=== PATIENT | female | born 1945 | race Caucasian/White ===

== ENCOUNTER → 2018-12-09 | Outpatient (CLI) | payer MEDICARE ==
--- NOTE | 2018-12-09 08:20 | RAD ---
Examination: EXT NON VASC LTD LEFT History: Left axillary palpable abnormality Comparison/Correlation: None Findings: Ultrasound imaging of the left axilla was performed. There is no loculated collection, mass, enlarged lymph nodes, or cystic structure. Soft tissues are unremarkable. Impression: Unremarkable left axillary ultrasound exam. Electronically signed by: Kentrell Gonzalez MD (12/09/2018 8:17 AM) [facility]
== END | disposition home or self-care (01) ==
LOC: US 14:17
PROVIDERS: ATTEND Family Medicine
DX: R22.32 Localized swelling, mass and lump, left upper limb (principal)
CPT/HCPCS: 76882

== ENCOUNTER → 2019-02-13 | Outpatient (CLI) | payer MEDICARE, OTHER ==
[~2019-02-13] MED LIST: ACET500T68 PO; APIX5TAB PO; DICL100G18 TP; FLUT100D IH; FOLI0.8C PO; GABA300C18 PO; HYDR200T5 PO; METH2.5T PO; METO25TA4 PO; MUPI22OI2 TP
--- NOTE | 2019-02-13 18:42 | PAIN ---
DATE OF SERVICE: 02/13/2019 INITIAL CONSULTATION FOR PAIN CLINIC CHIEF COMPLAINT: Low back pain. HISTORY OF PRESENT ILLNESS: This is a 73-year-old female who presents with history of pain in the low back for about 6 months now, increasing in pain, not a result of any specific injury or action that she is aware of, but the pain is getting worse with walking, standing, change in positions, even sitting for more than about 20 minutes can exacerbate the pain, especially driving in the car with pain in the right leg as well, but not radiating posteriorly just into the hip. The patient reports she has been seen recently at an outside facility and had bilateral medial branch facet blocks done twice with about 80% improvement each time, was considering radiofrequency ablation, but was not happy with the treatment she had personally at the clinic with the staff. She checked with her primary care physician and was referred to our office today. The patient reports the pain is constant, shooting with numbness across the low back and the right gluteus with a cramping sensation as well in the low back itself, again worse with standing, walking, changing positions, but does awaken her from sleep occasionally. The patient reports it does not affect her bowel or bladder control, but does affect her ability to walk. She is using a cane, which she has with her today and holds within her left hand. The patient has had epidural injections in the past, also physical therapy in 07/2018, chiropractic treatment ongoing, and also taking gabapentin and Tylenol, both of which do decrease the pain, but only minimally. The patient did have MRI scan of the lumbar spine showing diffuse bulging annulus at L2-L3 with a right focal paracentral disk protrusion. L3-L4 shows disk space narrowing and degenerative endplate changes. The L4-L5 shows ligamentous hypertrophy in the facet joints with diffuse bulging annulus. L5-S1 shows facet and ligamentous hypertrophy with bulging annulus as well. The patient reports no loss of motor function, but significant fatigability with the right leg with walking and standing. The patient rates her disability rating from 0-10, 10 being the worst, is a 7 with family home responsibilities, recreation and occupation, 6 with social activity, 5 with self-care and 4 with life support activities. The patient reports no loss of motor function, but again significant fatigability of the right side with walking. PAST MEDICAL HISTORY: Significant for irregular heart rhythm, diverticulitis, incontinence, anticoagulation, arthritis, Britney's thyroiditis. PAST SURGICAL HISTORY: Previous surgeries include cataract extraction, heart ablation, hernia repairs, hysterectomy, nose surgery and cholecystectomy. CURRENT MEDICATIONS: Include Eliquis, methotrexate, gabapentin, metoprolol, hydroxychloroquine, mupirocin, folic acid, Tylenol, Flovent, Voltaren. ALLERGIES: THE PATIENT IS ALLERGIC TO MORPHINE, TRAMADOL, BIAXIN, TORADOL. FAMILY HISTORY: Significant for heart disease, cancer and arthritis. SOCIAL HISTORY: The patient does not drink alcohol, does not smoke. Denies any illegal, illicit or recreational drugs. She is , lives with her spouse, lives locally in [place], [place]. Reports she is currently retired. REVIEW OF SYSTEMS: The patient's review of systems is positive for those items mentioned in history of present illness. All systems reviewed and otherwise negative. It is complete, full and well documented on the patient's chart. PHYSICAL EXAMINATION: VITAL SIGNS: The patient's blood pressure is 132/74, pulse 61, respirations 18, temperature 97.9 degrees Fahrenheit, 5 feet 4 inches, weighs 273 pounds. GENERAL: The patient is awake, alert, oriented, appropriate, very pleasant demeanor. HEENT: Shows normocephalic, atraumatic. Extraocular movements are intact and symmetrical. Oral cavity shows mucous membranes moist and pink. Dentition is intact. NECK: Shows anterior throat supple without palpable lymphadenopathy noted. Swallow reflex symmetrical. CHEST: Shows normal on inspection. Breath sounds are clear bilaterally. HEART: Shows S1, S2 clear. No murmurs auscultated. ABDOMEN: Soft, nontender, nondistended. No palpable organomegaly is noted. No rebound or guarding demonstrated. BACK: Shows spine grossly in the midline. Normal-appearing thoracic kyphosis. Slight exaggeration of flattening of lumbar lordotic curvature. Lumbar paraspinous muscle shows symmetrical on inspection. On palpation she has some moderate tenderness diffusely bilaterally, but only diffusely without significant radiation. No tenderness over the spinous processes, sacrum or sacroiliac regions. The patient shows some tenderness with rotation of motion; however, more to the right than the left and significant tenderness with extension of the lumbar spine and axial loading of the lumbar spine. No tenderness over the spinous processes, sacrum or sacroiliac regions. EXTREMITIES: Lower extremities show deep tendon reflexes at 1+ in the patellar and tendo-calcaneus tendons are equal. Motor exam is strong with 5/5 dorsiflexion, extension, quadriceps and hamstring flexion symmetrical. Peripheral pulses are 1+ in posterior tibia. No peripheral edema is noted bilaterally. Straight leg raise noted to be negative for reproduction of radicular symptoms. Gaenslen's and Killian's maneuvers are negative bilaterally as well. The patient is able to stand, has some difficulty rising from a seated position, but once she is up, she is ambulating under her own power again using a cane in her left hand with some significant favoring on the right lower extremity with a slight limp with ambulation. The patient's skin shows warm and dry, good turgor. No edema. No sores, rashes or bruising throughout. IMPRESSION: 1. This is a 73-year-old female with a long history approximately 1 year of arthritis, 6 months of low back pain with previous facet joint injections and medial branch blocks with good results at an outside facility. 2. Arthritis. 3. Anticoagulation therapy. PLAN: Options were discussed with the patient including conservative medical managements, physical therapies and interventional techniques. She would like to pursue interventional techniques as she has done well with previous medial branch blocks and would like to move forward. We discussed radiofrequency ablation and she is very interested in this. She has done well with the preliminary facet injections. We will make the arrangements for this and also check with her ranch rider to hold the Eliquis for 3 days prior to any spinal procedures. The patient understands and agrees. Once Eliquis is deemed safe and appropriate to hold for the procedures, we will proceed with radiofrequency ablation, bilateral L4-L5 and L5-S1 levels at that time. MARY ASENCIO MD DR: RANDOLPH/gadiel JOB#: [id number] / [id number] ASHLEE Caldwell MD
== END | disposition home or self-care (01) ==
LOC: PNCL 08:11
PROVIDERS: ATTEND Anesthesiology
DX: M54.5 Low back pain (principal); M19.90 Unspecified osteoarthritis, unspecified site; E06.3 Autoimmune thyroiditis; Z79.01 Long term (current) use of anticoagulants; Z88.5 Allergy status to narcotic agent; Z88.8 Allergy status to other drugs, medicaments and biological substances; Z90.49 Acquired absence of other specified parts of digestive tract; Z90.710 Acquired absence of both cervix and uterus
CPT/HCPCS: G0463

== ENCOUNTER → 2019-03-17 | Outpatient (CLI) | payer MEDICARE, OTHER ==
[~2019-03-17] MED LIST changes: +BUPIVACAINE MPF 0.25% 10 ML VIAL. ONE; +LIDOCAINE 2% PF 5 ML VIAL. ONE; +methylPREDNISolone ACETATE 40 MG/ML VIAL. ONE; +methylPREDNISolone ACETATE 80 MG/ML VIAL. ONE
--- NOTE | 2019-03-17 22:42 | PAIN ---
DATE OF SERVICE: 03/17/2019 DIAGNOSES: Lumbar degenerative disk disease with lumbar and lumbosacral spondylosis. HISTORY OF PRESENT ILLNESS: The patient is a 73-year-old female who returns for followup status post previous facet joint injections and medial branch blocks with good results. We had requested a preauthorization for radiofrequency ablation and she has obtained this. She has also been off her Eliquis now for 3 days with clearance from her material control manager, Dr. Russo. The patient returns today reporting still significant pain across the low back bilaterally, worse with standing and changing positions, walking, sitting for prolonged periods, better with sitting or lying down, does not awaken her from sleep at night, but sitting for more than an hour or so will exacerbate the pain. The patient reports no new motor or sensory deficits, no new bowel or bladder incontinence or other complaints. The patient rates her pain as a 10 on a scale of 10 at its worst, 6 on average, 3 at its least and is a 4 today. The patient reports no new changes or other deficits. PHYSICAL EXAMINATION: VITAL SIGNS: The patient's blood pressure is 126/80, pulse 62, respirations 18, temperature 97.8 degrees Fahrenheit, height is 5 feet 4 inches, weight is 262 pounds. GENERAL: The patient is awake, alert, oriented, appropriate, very pleasant demeanor. HEENT: Head shows normocephalic, atraumatic. Extraocular movements are intact and symmetrical. Oral cavity shows mucous shows mucous membranes moist and pink. Dentition is intact. NECK: Shows anterior throat supple without palpable lymphadenopathy noted. Swallow reflex symmetrical. CHEST: Shows normal on inspection. Breath sounds are clear to auscultation bilaterally. HEART: Shows S1, S2 clear. No murmurs auscultated. ABDOMEN: Soft, nondistended. No palpable organomegaly is noted. No rebound or guarding demonstrated. BACK: Shows spine grossly in the midline. Slight exaggeration of thoracic kyphosis, some minor flattening of lumbar lordotic curvature. Lumbar paraspinous muscle shows symmetrical on inspection, on palpation shows some moderate tenderness diffusely in the middle and lower distribution of paraspinous muscles bilaterally, right more severe than the left, but without significant radiation or asymmetry. The patient has good rotational motion but with significant pain with extension, especially on the right side low back, but present bilaterally with axial loading and better with forward flexion at 45 degrees, right and left lateral rotation shows some moderate tenderness on the left and more significant tenderness with right lateral rotation past 10 degrees. EXTREMITIES: Lower extremities show deep tendon reflexes 1+ in the patellar and tendo calcaneus tendons. Motor exam is strong with 5/5 dorsiflexion, extension, quadriceps and hamstring flexion and symmetrical. Peripheral pulses are 1+ posterior tibia. No peripheral edema is noted bilaterally. Options were discussed with the patient. The patient's old chart was reviewed as her current medication regimen updated. Current review of systems updated today as well. We will proceed with bilateral medial branch radiofrequency ablation at the L4-L5 and L5-S1 levels with fluoroscopic guidance. Risks were again discussed including, but not limited to bleeding, infection, possibility of epidural hematoma, subsequent neurological compromise, dural puncture, headaches, spinal cord and/or nerve damage, side effects of steroid medication, exposure to fluoroscopy, potential thermal ablation and thermal damage to surrounding tissues including motor nerves in the low back and poor results regarding pain control. The patient understands and wished to proceed. The patient will return to clinic in approximately 3 weeks for followup. She was counseled as to return appointment, activity level and side effects to be aware of. DIAGNOSIS: Lumbar and lumbosacral spondylosis. PROCEDURE: Bilateral L4-L5 and L5-S1 medial branch facet radiofrequency ablation using C-arm fluoroscopic guidance under sterile prep and drape using local anesthetic. MEDICATION INJECTED: A total of 6 mL of 2% lidocaine after motor testing and prior to radiofrequency ablation. Also, 6 mL of 0.25% bupivacaine and total of 120 mg Depo-Medrol after radiofrequency ablation. Please see radiofrequency flow sheet for levels, impedances. Motor testing, radiofrequency temperature and time, etc. CONDITION AT DISCHARGE: Stable. The patient tolerated the procedure well, had no complications, left on her own ambulatory power. MARY ASENCIO MD DR: RANDOLPH/gadiel JOB#: [id number] / [id number]
== END ==
LOC: PNCL 13:20
PROVIDERS: ATTEND Anesthesiology
DX: M51.36 Other intervertebral disc degeneration, lumbar region (principal); M47.817 Spondylosis without myelopathy or radiculopathy, lumbosacral region
CPT/HCPCS: 64635; 64636; J1030; J1040; J2001; J3490

== ENCOUNTER → 2019-04-16 | Outpatient (CLI) | payer MEDICARE, OTHER ==
[~2019-04-16] MED LIST changes: -BUPIVACAINE MPF 0.25% 10 ML VIAL. ONE; -LIDOCAINE 2% PF 5 ML VIAL. ONE; -methylPREDNISolone ACETATE 40 MG/ML VIAL. ONE; -methylPREDNISolone ACETATE 80 MG/ML VIAL. ONE
--- NOTE | 2019-04-16 22:47 | PAIN ---
DATE OF SERVICE: 04/16/2019 PROGRESS NOTE FOR PAIN CLINIC DIAGNOSES: 1. Lumbar degenerative disk disease and lumbar spondylosis. 2. Cervical radiculopathy with cervical degenerative disk disease. 3. Myofascial pain. HISTORY OF PRESENT ILLNESS: The patient is a 73-year-old female who returns for followup status post radiofrequency ablation at bilateral L4-L5 and L5-S1 facet medial branches. The patient reports about 50% improvement overall. The sharp pain is now gone but she still has some dull aching pain. Her main complaint today, however, is pain in the base of the neck and shoulder, right upper extremity, right posterior shoulder, mid back, upper back, and bilateral gluteus, more on the left than the right, consistent with some areas of very firm tight musculature. The patient reports she has knots that are formed in these areas and they are quite exacerbated at this time. The patient reports that her pain is 6 on a scale of 10 at its worst over the past week, 5 on average, 4 at its least, and is a 5 today. The patient reports that it is aching, sharp, and becoming more constant. Her right thigh is doing better and her low back is overall better by about 50%. The patient reports that she has increased her activities doing greater household activities, greater distance walking, and doing work activities as well. The patient reports no new motor or sensory deficits and no new changes. PHYSICAL EXAMINATION: VITAL SIGNS: The patient's blood pressure 119/70, pulse 71, respirations 16, temperature 97.9 degrees Fahrenheit, and weight is 275 pounds. GENERAL: The patient is awake, alert, oriented, and appropriate. Very pleasant demeanor. HEENT: Shows normocephalic and atraumatic. Extraocular movements are intact and symmetrical. Oral cavity: Mucous membranes are moist and pink. Dentition is intact. NECK: Shows anterior throat supple without palpable lymphadenopathy noted. Swallow reflex symmetrical. CHEST: Shows normal on inspection. Breath sounds are clear bilaterally. HEART: Shows S1, S2 clear. No murmurs auscultated. ABDOMEN: Soft, nontender, and nondistended. SPINE: Back shows spine grossly in the midline. Cervical paraspinous muscle shows symmetrical on inspection. On palpation, she has some very firm rope-like musculature in the inferior aspect of the cervical paraspinous musculature on the right and into the trapezius with very firm rope-like musculature consistent with trigger point areas of muscle on the right side. This is true into the superior suprascapular distribution of the trapezius as well as the medial inferior aspect of the trapezius and thoracic paraspinous musculature. Lumbar paraspinous muscle shows symmetrical on inspection. With palpation, she has some very firm rope-like musculature in the inferior aspect of the paraspinous muscles on the left greater than the right, but present bilaterally with very firm rope-like musculature in the gluteus, worse on the right than the left, very firm rope-like musculature and very tender with palpation. EXTREMITIES: The patient's lower extremities show deep tendon reflexes 1+ in the patellar and tendo calcaneus tendons. Motor exam is strong with 5/5 dorsiflexion, extension, quadriceps, and hamstring flexion. Peripheral pulses are 1+ posterior tibia. No peripheral edema is noted. PLAN: Options were discussed with the patient. The patient's old chart was reviewed as her current medication regimen updated. Current review of systems updated today as well. We will have the patient hold Eliquis once again for 3 days and return for trigger point injections of the aforementioned musculature. The patient will maintain stretching and strengthening exercises. We also talked about heat and stretching with heat application and massage techniques. The patient will maintain these and again return next week for trigger point injections once Eliquis has been held. MARY ASENCIO MD DR: RANDOLPH/gadiel JOB#: [id number] / [id number]
== END | disposition home or self-care (01) ==
LOC: PNCL 14:15
PROVIDERS: ATTEND Anesthesiology
DX: M51.36 Other intervertebral disc degeneration, lumbar region (principal); M47.896 Other spondylosis, lumbar region; M54.12 Radiculopathy, cervical region; M50.30 Other cervical disc degeneration, unspecified cervical region; M79.18 Myalgia, other site
CPT/HCPCS: G0463

== ENCOUNTER → 2019-04-25 | Outpatient (CLI) | payer MEDICARE, OTHER ==
[~2019-04-25] MED LIST changes: +BUPIVACAINE MPF 0.25% 10 ML VIAL. ONE; +methylPREDNISolone ACETATE 40 MG/ML VIAL. ONE
--- NOTE | 2019-04-25 13:43 | PAIN ---
DATE OF SERVICE: 04/25/2019 PROGRESS NOTE FOR PAIN CLINIC DIAGNOSES: 1. Lumbar degenerative disk disease and lumbosacral spondylosis. 2. Cervical radiculopathy with cervical degenerative disk disease. 3. Myofascial pain. HISTORY OF PRESENT ILLNESS: The patient is a 73-year-old female who returns for followup status post radiofrequency ablation, bilateral L4-L5 and L5-S1 with about a 50% improvement overall, still doing well. 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 The patient reports it does not awaken her from sleep. Her main complaint is right upper back and neck pain, and we discussed with her on her last visit. She has been off her Eliquis now for 3 days. Describes the pain in the base of the neck and shoulder on the right side, upper back, mid back and neck as a tingling and burning pains, on and off in intensity but tight, burning and stinging. The patient reports it is a 6 on a scale of 10 at its worst, 6 on an average and a 5 at its least over the past week and is a 6 today. The patient reports no new motor or sensory deficits, no new bowel or bladder incontinence or other complaints. PHYSICAL EXAMINATION: VITAL SIGNS: The patient's blood pressure is 120/73, pulse 65, respirations 18, temperature 98.5 degrees Fahrenheit and weight is 277 pounds. GENERAL: The patient is awake, alert, oriented, appropriate, very pleasant demeanor. HEENT: Head shows normocephalic, atraumatic. Extraocular movements are intact and symmetrical. Oral cavity: Mucous membranes moist and pink. Dentition is intact. NECK: Shows anterior throat supple without palpable lymphadenopathy noted. Swallow reflex symmetrical. CHEST: Shows normal on inspection. Breath sounds clear to auscultation bilaterally. HEART: Shows S1, S2 clear. No murmurs auscultated. ABDOMEN: Soft, nontender, nondistended. No palpable organomegaly is noted. No rebound or guarding demonstrated. BACK: Shows spine grossly in the midline. Normal-appearing thoracic kyphosis and some slight flattening of lumbar lordotic curvature. Cervical paraspinous muscle shows symmetrical on inspection, on palpation shows some very firm rope-like musculature in the inferior aspect of the right side only. Cervical paraspinous musculature in the inferior aspect, also in the superior medial trapezius, very firm rope-like musculature in the trapezius is very tender to palpation without radiation. This is true into the suprascapular region as well as into the thoracic paraspinous musculature on the right side only. Left side is nontender and supple. The patient's neck shows full rotational motion of cervical spine, both laterally as well as extension and flexion without significant difficulty. EXTREMITIES: Upper extremities show deep tendon reflexes 2+ in the biceps, triceps tendons. Motor exam is strong with associate professor of management strength rated at 5/5 as is bicep and tricep flexion. The patient has good shoulder rotation on the right and the left, both actively and passively without restriction as well. Options were discussed with the patient. The patient's old chart was reviewed as her current medication regimen updated. Current review of systems updated today as well. We will proceed with trigger point injections of the aforementioned and identified musculature. Risks were discussed including but not limited to bleeding, infection, possibility of intravascular injection sequelae, spread of local anesthetic and numbness, pneumothorax, side effects of steroid medication and poor results regarding pain control. The patient understands and wished to proceed. The patient will return to clinic in approximately 2 weeks for followup. She was counseled as to return appointment, activity level and side effects to be aware of. DIAGNOSIS: Myofascial pain. PROCEDURE: Trigger point injections, right-sided cervical paraspinous musculature, right-sided trapezius musculature and right-sided thoracic paraspinous muscular and suprascapular musculature which was under sterile prep and drape using local anesthetic. MEDICATION INJECTED: A total of 8 mL of 0.25% bupivacaine after negative aspiration at each injection site as well as 40 mg total of Depo-Medrol. CONDITION AT DISCHARGE: Stable. The patient tolerated the procedure well, had no complications. MARY ASENCIO MD DR: RANDOLPH/gadiel JOB#: [id number] / [id number]
== END ==
LOC: PNCL 10:30
PROVIDERS: ATTEND Anesthesiology
DX: M79.18 Myalgia, other site (principal); M47.817 Spondylosis without myelopathy or radiculopathy, lumbosacral region; M50.10 Cervical disc disorder with radiculopathy, unspecified cervical region
CPT/HCPCS: 20553; J1030; J3490

== ENCOUNTER → 2019-05-22 | Outpatient (CLI) | payer MEDICARE, OTHER ==
--- NOTE | 2019-05-22 15:35 | PAIN ---
DATE OF SERVICE: 05/22/2019 PROGRESS NOTE FOR PAIN CLINIC DIAGNOSES: 1. Myofascial pain. 2. Lumbar degenerative disk disease with spondylosis. 3. Cervical degenerative disk disease with cervical radiculopathy. HISTORY OF PRESENT ILLNESS: The patient is a 73-year-old female who returns for followup status post trigger point injections on 04/25/2019. The patient did very well with this with about 90% improvement in her right arm. Now, the left arm is very painful in the shoulder girdle, base of the neck, right upper extremity, posterior and anterior aspect, especially on the biceps and in the upper shoulder as well. The patient reports it is a constant, aching, dull, sharp, shooting, very spastic and tender. The patient reports especially when she is sleeping, it is awakening her from sleep. When she is lying on her left side, the patient reports it is a 7 on a scale of 10 at its worst over the past week, 6 on average, 5 at its least and is a 6 today. The patient reports no new motor or sensory deficits and the right side doing much better, increasing her activity with greater ease and comfort, using right upper extremity with more ease as well. PHYSICAL EXAMINATION: VITAL SIGNS: The patient's blood pressure 111/61, pulse 70, respirations 18, temperature 97.3 degrees Fahrenheit, height is 5 feet 4 inches and weight is 278 pounds. GENERAL: The patient is awake, alert, oriented, appropriate, very pleasant demeanor. HEENT: Shows normocephalic, atraumatic. Extraocular movements are intact and symmetrical. Oral cavity: Mucous membranes moist and pink. Dentition is intact. NECK: Shows anterior throat supple without palpable lymphadenopathy noted. Swallow reflex symmetrical. CHEST: Shows normal on inspection. Breath sounds clear bilaterally. HEART: Shows S1, S2 clear. ABDOMEN: Soft, nontender, nondistended. BACK: Shows spine grossly in the midline. Cervical paraspinous muscle shows symmetrical on inspection, with palpation shows some moderate tenderness in the inferior aspect of cervical paraspinous musculature, more on the left than the right and with some very firm rope-like musculature in the inferior cervical paraspinous musculature along the trapezius on the left side, supraspinatus region, also the rhomboid distribution and into the superior aspect of the thoracic paraspinous muscles of very firm rope-like musculature, very tender with palpation. This is true into the lateral and anterior deltoid as well with very firm rope-like musculature and trigger point areas as well as into the anterior bicep on the medial aspect, very firm rope-like musculature consistent with trigger point areas of muscle, very firm, very tender with palpation without specific radiation. EXTREMITIES: The patient's upper extremity deep tendon reflexes show 2+ in the biceps and triceps tendons. 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 Peripheral pulses are 2+ radial. No peripheral edema is noted. Options were discussed with the patient. The patient's old chart was reviewed as her current medication regimen updated. Current review of systems updated today as well. We will proceed with trigger point injections of the identified musculature. Risks were discussed including but not limited to bleeding, infection, possibility of intravascular injection sequelae, spread of local anesthetic and numbness, pneumothorax, side effects of steroid medication and poor results regarding pain control. The patient understands and wished to proceed. The patient will return to clinic in approximately 2 weeks for followup. She was counseled as to return appointment, activity level and side effects to be aware of. DIAGNOSIS: Myofascial pain. PROCEDURES: Trigger point injections, left-sided cervical paraspinous musculature, left trapezius, left rhomboid musculature, left supraspinatus, left deltoid and left thoracic paraspinous musculature as well as left biceps musculature under sterile prep and drape using local anesthetic. MEDICATION INJECTED: A total of 40 mg of Depo-Medrol and a total of 9 mL of 0.25% bupivacaine after negative aspiration at each injection site. CONDITION AT DISCHARGE: Stable. The patient tolerated the procedure well, had no complications. MARY ASENCIO MD DR: RANDOLPH/gadiel JOB#: [id number] / [id number]
== END ==
LOC: PNCL 10:23
PROVIDERS: ATTEND Anesthesiology
DX: M79.18 Myalgia, other site (principal); M50.10 Cervical disc disorder with radiculopathy, unspecified cervical region; M47.816 Spondylosis without myelopathy or radiculopathy, lumbar region
CPT/HCPCS: 20553; J1030; J3490

== ENCOUNTER → 2019-05-26 | Outpatient (CLI) | payer MEDICARE, OTHER ==
[~2019-05-26] MED LIST changes: -BUPIVACAINE MPF 0.25% 10 ML VIAL. ONE; -methylPREDNISolone ACETATE 40 MG/ML VIAL. ONE
--- NOTE | 2019-05-26 10:15 | KCIC ---
EXAM: Cervical spine MRI without contrast. HISTORY: Left upper extremity radiculopathy. TECHNIQUE: Multiplanar, multisequence magnetic resonance imaging of the cervical spine was performed without contrast. COMPARISON: None FINDINGS: There is mild cervical kyphosis. There is no significant listhesis. The vertebral bodies are normal in height. There is no fracture. There is no suspicious osseous lesion. The skull base and posterior fossa are unremarkable. No suspicious spinal cord lesion is seen. There is degenerative endplate remodeling and osteophytosis at the majority of the cervical levels. At C2-C3, there is no stenosis. At C3-C4, there is a disc bulge and endplate remodeling. There is bilateral uncovertebral arthropathy. There is slight flattening of the ventral aspect of the spinal cord without significant central canal stenosis. At C4-C5, there is a disc bulge and endplate osteophytosis. There is bilateral uncovertebral arthropathy. There is mild right foraminal stenosis. There is flattening of the ventral aspect of the spinal cord without significant central canal stenosis. At C5-C6, there is a disc bulge and endplate osteophytosis. There is mild right facet arthropathy. There is uncovertebral arthropathy. There is mild left foraminal stenosis. There is abutment of the ventral aspect of the spinal cord without significant central canal stenosis. At C6-C7, there is a disc bulge and endplate osteophytosis. There is uncovertebral arthropathy. There is mild right foraminal stenosis. There is effacement of the anterior thecal sac without significant central canal stenosis. IMPRESSION: Multilevel degenerative change involving the cervical spine, described in detail above. This results in mild right foraminal stenosis at C4-C5 and C6-C7 and mild left foraminal stenosis at C5-C6. There is slight flattening of the ventral aspect of the spinal cord at several levels without significant central canal stenosis or spinal cord signal abnormality. Electronically signed by: Rianna Stratton MD (05/26/2019 10:12 AM) [facility]
== END ==
LOC: KCIC MRI 09:17
PROVIDERS: ATTEND Anesthesiology
DX: M54.16 Radiculopathy, lumbar region (principal)
CPT/HCPCS: 72141

== ENCOUNTER → 2019-07-28 | Outpatient (CLI) | payer MEDICARE, OTHER ==
[~2019-07-28] MED LIST changes: +BUPIVACAINE MPF 0.25% 10 ML VIAL. ONE; -DICL100G18 TP; +DICL100G54 TP; +methylPREDNISolone ACETATE 40 MG/ML VIAL. ONE
--- NOTE | 2019-07-28 10:13 | PAIN ---
DATE OF SERVICE: 07/28/2019 PROGRESS NOTE FOR PAIN CLINIC DIAGNOSES: 1. Lumbar degenerative disk disease with lumbar spondylosis. 2. Cervical radiculopathy with cervical degenerative disk disease. 3. Myofascial pain. HISTORY OF PRESENT ILLNESS: The patient is a 73-year-old female who returns for followup status post trigger point injections of the upper neck and shoulders, mostly on the left side. The patient reports she did very well with about 50% improved. The pain is returning now in the base of neck and shoulders. We had scheduled an MRI scan, which she had done. We discussed the results with her day-to-day on the phone with some mild foraminal stenosis both right and left at C4-C5 and C6-C7. The patient still reports some radicular-type pain in the upper extremities bilaterally as well as the shoulders ____ some knot on the left side of base of the neck, upper shoulder, upper mid back and left side. The patient reports no new motor or sensory deficits. Reports the pain does not awaken her from sleep at night, but the pain is becoming more noticeable in both the upper extremities, radiating to the anterior bicep region as well as the forearm and to the left hand and fingers more than the right. The patient reports it is aching, sometimes sharp, becoming more constant, stiff difficulty with getting position for sleep, but when she is asleep, she generally does not awaken her from sleep. The patient reports it is a 6 on a scale of 10 at its worse over the past week, 6 on average, 5 at its least and is a 6 today. The patient reports no new motor or sensory deficits, no new bowel or bladder incontinence or other complaints. PHYSICAL EXAMINATION: VITAL SIGNS: The patient's blood pressure 112/74, pulse 68, respirations 18, temperature is 97.8 degrees Fahrenheit, and weight is 287 pounds. GENERAL: The patient is awake, alert, oriented, appropriate, very pleasant demeanor. HEENT: Shows normocephalic, atraumatic. Extraocular movements are intact and symmetrical. Oral cavity: Mucous membranes moist and pink. Dentition is intact. NECK: Shows anterior throat supple without palpable lymphadenopathy noted. Swallow reflex symmetrical. CHEST: Shows normal on inspection. Breath sounds are clear bilaterally. HEART: Shows S1, S2 clear. No murmurs auscultated. ABDOMEN: Soft, nontender, nondistended. No palpable organomegaly is noted. No rebound or guarding demonstrated. BACK: Shows spine grossly in the midline. Normal appearing thoracic kyphosis and some slight flattening of lumbar lordotic curvature. Cervical paraspinous muscle shows symmetrical as well. With palpation shows some very firm rope-like musculature in the inferior cervical paraspinous musculature as well as the left trapezius in the left thoracic paraspinous musculature, very firm, very tender to palpation on multiple musculature consistent with trigger point areas in these regions only on the left side. The patient reports pain with palpation in the anterior deltoid bilaterally as well. EXTREMITIES: Upper extremities show deep tendon reflexes 2+ in the biceps and triceps tendons. 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 Peripheral pulses are 2+ radial. No peripheral edema bilaterally. Options were discussed with the patient. The patient's old chart was reviewed as her current medication regimen updated. Current review of systems updated today as well. We will proceed with trigger point injections of the identified musculature. Risks were discussed including but not limited to bleeding, infection, possibility of extravasation of local anesthetic and numbness as well as poor results regarding pain control. The patient understands and wished to proceed. The patient will return to clinic in approximately 4 days. We discussed holding her Eliquis once again which has been cleared with her liquid compounder in the past for a cervical epidural steroid injection. Regarding her cervical radicular symptoms and MRI findings. The patient would like to proceed with this. We will make these arrangements to have her return for cervical epidural steroid injection. DIAGNOSIS: Myofascial pain. PROCEDURE: Trigger point injections, left cervical paraspinous musculature, left trapezius musculature, left thoracic paraspinous musculature and bilateral deltoid musculature under sterile prep and drape using local anesthetic. MEDICATION INJECTED: A total of 8 mL of 0.25% bupivacaine after negative aspiration at each injection site. CONDITION AT DISCHARGE: Stable. The patient tolerated the procedure well, had no complications. MARY ASENCIO MD DR: RANDOLPH/gadiel JOB#: [id number] / [id number]
== END ==
LOC: PNCL 08:59
PROVIDERS: ATTEND Anesthesiology
DX: M79.18 Myalgia, other site (principal); M51.26 Other intervertebral disc displacement, lumbar region; M47.816 Spondylosis without myelopathy or radiculopathy, lumbar region; M50.10 Cervical disc disorder with radiculopathy, unspecified cervical region
CPT/HCPCS: 20553; J3490; J1030

== ENCOUNTER → 2019-08-01 | Outpatient (CLI) | payer MEDICARE, OTHER ==
[~2019-08-01] MED LIST changes: -BUPIVACAINE MPF 0.25% 10 ML VIAL. ONE; +methylPREDNISolone ACETATE 80 MG/ML VIAL. ONE
--- NOTE | 2019-08-01 10:11 | PAIN ---
DATE OF SERVICE: 08/01/2019 PROGRESS NOTE FOR PAIN CLINIC DIAGNOSES: 1. Cervical radiculopathy with cervical degenerative disk disease. 2. Lumbar degenerative disk disease with lumbar spondylosis. 3. Myofascial pain. HISTORY OF PRESENT ILLNESS: The patient is a 73-year-old female who returns for followup status post trigger point injections just about 4 days ago. The patient did well with these in the left cervical paraspinous musculature as well as the trapezius and thoracic paraspinous muscles, but reports the pain is returning fairly significantly in base of the upper neck, mid neck and into the shoulders bilaterally, worse on the right than the left with radiating pain into the arms and hands and tingling in the fingers bilaterally, again worse on the right side. The patient reports it is sharp pain in the right arm and shoulder, becoming more constant in the neck. Rates as a 6 on a scale of 10 at its worst over the past week or so, 5 on average and 4 at its least and is a 5 today. The patient reports no new motor or sensory deficits, although the trigger points are helping the pain keeps returning with some muscular spasticity and radiating pain in the upper extremities once again. The patient reports no new motor or sensory deficits. Difficulty lifting her right and left arms with any repetitive motion or any weightbearing, but reports her left arm is doing about 90% better after trigger points. PHYSICAL EXAMINATION: VITAL SIGNS: The patient's blood pressure 111/76, pulse 62, respirations 18, temperature 97.6 degrees Fahrenheit, weight is 281 pounds. GENERAL: The patient is awake, alert, oriented, appropriate, very pleasant demeanor. HEENT: Head shows normocephalic, atraumatic. Extraocular movements are intact and symmetrical. Oral cavity: Mucous membranes moist and pink. NECK: Shows anterior throat supple without palpable lymphadenopathy noted. Swallow reflex symmetrical. CHEST: Shows normal on inspection. Breath sounds clear. No rales, rhonchi or wheezes auscultated. HEART: Shows S1, S2 clear. ABDOMEN: Obese, but soft, nontender, nondistended. BACK: Shows spine grossly in the midline. Cervical paraspinous muscle shows symmetrical with inspection, on palpation shows some moderate tenderness diffusely bilaterally going diffusely throughout the upper, middle and lower distribution of paraspinous muscles, which is slightly firm, but without specific trigger points, without radiation of pain. The patient shows good rotational motion of cervical spine, both laterally as well as extension and flexion without significant increase in pain. EXTREMITIES: Upper extremities show deep tendon reflexes at 2+ in the biceps and triceps tendons. 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 Peripheral pulses are 2+ radial. No peripheral edema is noted. Options were discussed with the patient. The patient's old chart was reviewed as her current medication regimen updated. Current review of systems updated today as well. We will proceed with a cervical epidural steroid injection today with fluoroscopic guidance. Risks were discussed including but not limited to bleeding, infection, possibility of epidural hematoma, subsequent neurological compromise, dural puncture, headaches, spinal cord and/or nerve damage, side effects of steroid medication and poor results regarding pain control. The patient understands and wished to proceed. The patient will return to clinic in approximately 2 weeks for followup. She was counseled on return appointment, activity level and side effects to be aware of. DIAGNOSES: Cervical radiculopathy with cervical degenerative disk disease. PROCEDURE: Cervical epidural steroid injection, translaminar approach C6-C7 level using C-arm fluoroscopic guidance under sterile prep and drape using local anesthetic. MEDICATION INJECTED: A total of 120 mg Depo-Medrol plus 5 mL of preservative-free normal saline and 2 mL of contrast. CONDITION AT DISCHARGE: Stable. The patient tolerated procedure well, had no complications. MARY ASENCIO MD DR: RANDOLPH/gadiel JOB#: [id number] / [id number]
== END ==
LOC: PNCL 08:43
PROVIDERS: ATTEND Anesthesiology
DX: M50.123 Cervical disc disorder at C6-C7 level with radiculopathy (principal); M51.36 Other intervertebral disc degeneration, lumbar region; M47.816 Spondylosis without myelopathy or radiculopathy, lumbar region
CPT/HCPCS: 62321; J1030; J1040

== ENCOUNTER → 2019-10-22 | Outpatient (CLI) | payer MEDICARE, OTHER ==
[~2019-10-22] MED LIST changes: +BUPIVACAINE MPF 0.25% 10 ML VIAL. ONE; -methylPREDNISolone ACETATE 80 MG/ML VIAL. ONE
--- NOTE | 2019-10-22 08:39 | PDOC ---
Progress Note - Pain Clinic Date of Service: DOS: DATE: 10/22/19 TIME: 08:34 Diagnosis: Dx: Lumbar and lumbosacral spondylosis with degenerative disc disease, cervical radiculopathy with cervical degenerative disc disease, myofascial pain, left knee joint pain with primary osteoarthritis. History or Present Illness: HPI: 74-year-old female returns for follow-up status post a cervical epidural steroid injection x1 August 01, 2019. Patient ports doing much better about 80% improvement with the neck and shoulders chief complaint today is pain in the upper mid back left side of the shoulder and base of the neck as well as the mid and lower back on the left side as well. Patient reports her neck and shoulder is doing better but the muscular pain is much more severe also significant pain in the left knee with walking and weightbearing. Patient ports pain in the mid back upper back and low back is a 7 on a scale of 10 is worse over the past week 7 on average 5 its least is a 5 today patient which is dull and tight in the back versus spastic and with some cramping sensation as well. This is worse with activity walking standing change positions twisting lumbar spine and sleeping on her left side. 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 Patient reports no new motor or sensory deficits no new bowel or bladder incontinence or other complaints. Physical Exam: VS: Blood pressure is 107/65 pulse 59 respirations 20 temperature 97.8 F weight is 2 8 0 pounds PE: PHYSICAL EXAMINATION: GENERAL: The patient is awake, alert, oriented, appropriate, very pleasant demeanor HEENT: Shows normocephalic, atraumatic. Extraocular movements are intact and symmetrical. Oral cavity: Mucous membranes moist and pink. Dentition is intact. NECK: Shows anterior throat supple without palpable lymphadenopathy noted. Swallow reflex symmetrical. CHEST: Shows normal on inspection. Breath sounds are clear bilaterally, no rales rhonchi or wheezes auscultated. HEART: Shows S1, S2 clear. No murmurs auscultated. ABDOMEN: Soft, nontender, nondistended obese. No palpable organomegaly is noted. No rebound or guarding demonstrated. BACK: Shows spine grossly in the midline. Normal-appearing cervical lordotic curvature. There is slightly increased thoracic kyphosis, with very firm ropelike musculature consistent with trigger point areas of muscle in the left trapezius as well as in the thoracic paraspinous musculature on the left but not the right and without radiation on palpation but very tender. Some minor flattening of the lumbar lordotic curvature. Lumbar paraspinous muscles show symmetrical on inspection, on palpation shows some moderate tenderness diffusely throughout the upper, middle and lower distribution of the paraspinous muscles greater on the left than the right with very firm ropelike musculature consistent with trigger point areas of musculature but without specific radiation. And also into the lower thoracic paraspinous musculature, firm and tender, again consistent with areas of trigger point musculature and very firm and very tender. But without radiation of pain. The patient has good rotational motion of the lumbar spine, both laterally as well as extension and flexion without significant difficulty. No tenderness over the spinous processes, sacrum or sacroiliac regions. EXTREMITIES: Lower extremities show deep tendon reflexes 1+ in the patellar and tendo calcaneus tendons. Motor exam is 4 on a scale of 5 with right dorsiflexion, extension, quadriceps and hamstring flexion and 4/5 on the left. Peripheral pulses are 1+ posterior tibial. No peripheral edema is noted bilaterally. Lower extremities are warm and dry to touch, equal in color and appearance. SKIN: Shows warm and dry, good turgor. No edema. No sores, rashes or bruising throughout. Procedure: Procedure: Options were discussed with the patient. Patient will chart was use her current medication regimen updated current review of systems updated today as well. We will proceed with trigger point injections of the identified musculature. Risks are discussed including but not limited to bleeding infection possibility of intravascular injection sequelae spread local acetic numbness pneumothorax side effects of steroid medication and portal screening pain control. Patient understands wished to proceed patient return to clinic in approximately 1 week follow-up was counseled as return appointment activity level and side effects to be aware of. Medication Injected: Med Injected: Under sterile prep and drape identified areas of trigger point musculature was injected using a total of 11 cc 0.25% bupivacaine and 40 mg total of Depo-Medrol after negative aspiration each injection site. Patient tolerated procedure well had no complications. Condition at Discharge: Condition at Discharge: Condition at discharge stable patient procedure well had no immediate complications. MARY ASENCIO MD Oct 22, 2019 08:39
== END | disposition home or self-care (01) ==
LOC: PNCL 08:03
PROVIDERS: ATTEND Anesthesiology
DX: M50.10 Cervical disc disorder with radiculopathy, unspecified cervical region (principal); M17.12 Unilateral primary osteoarthritis, left knee; M47.897 Other spondylosis, lumbosacral region; M79.18 Myalgia, other site; Z88.8 Allergy status to other drugs, medicaments and biological substances; Z79.899 Other long term (current) drug therapy
CPT/HCPCS: 20553; J1030; J3490

== ENCOUNTER → 2019-10-29 | Outpatient (CLI) | payer MEDICARE, OTHER ==
--- NOTE | 2019-10-29 10:14 | PDOC ---
Progress Note - Pain Clinic Date of Service: DOS: DATE: 10/29/19 TIME: 10:08 Diagnosis: Dx: Lumbar spondylosis with lumbar degenerative disc disease Cervical radiculopathy with cervical degenerative disc disease Myofascial pain Left knee joint pain with osteoarthritis History or Present Illness: HPI: 74-year-old female returns follow-up status post trigger point injections 1 week ago in the trapezius thoracic and paralumbar paraspinous musculature with very good results about 75% improvement patient ports that the pain is returning only in the left side of the low back but in the bilateral mid back and shoulders. Patient fortunately she was increase her activity doing greater household activities work activities try with greater ease and comfort patient traveled to a nearby little over the weekend was in very good condition and good comfort level. Patient reports pain is returning now more on the left side than the right again in the low back, left mid back bilaterally and shoulders bilaterally some cramping stabbing sensation described as aching and cramping in the legs some tingling as well in the low back. Patient rates her pain as a 6 on a scale of 10 is worse over the past week 3 on average to its least and is a 3 today. Patient ports no new motor or sensory deficits no new bowel or bladder construct complaints. Physical Exam: VS: Blood pressure is 112/71 pulse 63 respirations 18 temperature 98.2 F weight is 280 pounds PE: PHYSICAL EXAMINATION: GENERAL: The patient is awake, alert, oriented, appropriate, very pleasant demeanor HEENT: Shows normocephalic, atraumatic. Extraocular movements are intact and symmetrical. Oral cavity: Mucous membranes moist and pink. NECK: Shows anterior throat supple without palpable lymphadenopathy noted. Swallow reflex symmetrical. CHEST: Shows normal on inspection. Breath sounds are clear bilaterally no rales rhonchi or wheezes auscultated. HEART: Shows S1, S2 clear. No murmurs auscultated. ABDOMEN: Soft, nontender, nondistended. No palpable organomegaly is noted. No rebound or guarding demonstrated. BACK: Shows spine grossly in the midline. Normal-appearing cervical lordotic curvature. There is slightly increased thoracic kyphosis, some minor flattening of the lumbar lordotic curvature. Lumbar paraspinous muscles show symmetrical on inspection, on palpation shows some moderate tenderness diffusely throughout the upper, middle and lower distribution of the paraspinous muscles bilaterally and also into the lower thoracic paraspinous musculature, firm and tender, with very firm ropelike musculature consistent with trigger point areas of musculature in the left lumbar paraspinous posture and bilateral thoracic paraspinous muscles are also cervical and trapezius musculature very firm ropelike muscles in the trapezius bilaterally somewhat worse on the left than the right but present bilaterally consistent with trigger point areas of musculature as well but without specific radiation. Without radiation of pain. The patient has good rotational motion of the lumbar spine, both laterally as well as extension and flexion without significant difficulty. No tenderness over the spinous processes, sacrum or sacroiliac regions. EXTREMITIES: Lower extremities show deep tendon reflexes 1+ in the patellar and tendo calcaneus tendons. Motor exam is 4 on a scale of 5 with right dorsiflexion, extension, quadriceps and hamstring flexion and 4/5 on the left. Peripheral pulses are 1+ posterior tibial. No peripheral edema is noted bilaterally. Lower extremities are warm and dry to touch, equal in color and appearance. SKIN: Shows warm and dry, good turgor. No edema. No sores, rashes or bruising throughout. Procedure: Procedure: Options were discussed with the patient. Patient chart reviewed as her current medication regimen updated current review of systems updated today as well. We will proceed with trigger point areas of the identified musculature. Risks are discussed including but not limited to bleeding infection possibility of intravascular injection sequelae spread to local anesthetic numbness pneumothorax side effects of steroid medication and poor results regarding pain control. Patient understands and wishes to proceed. Patient return to clinic in approximately 2 weeks for follow-up was counseled as to return appointment activity level and side effects be aware. Patient will restart her Eliquis tomorrow Medication Injected: Med Injected: Under sterile prep and drape patient's back was sterilely prepped in the cervical trapezius thoracic and lumbar distributions. Identified trigger points were then injected with 1 cc each of 0.25% ropivacaine with a total of 40 mg Depo-Medrol and 10 cc of ropivacaine after negative aspiration each injection site. Patient tolerated the procedure well had no complications. Condition at Discharge: Condition at Discharge: Patient tolerated procedure well had no complications condition at discharge is stable MARY ASENCIO MD Oct 29, 2019 10:14
--- NOTE | 2019-10-31 14:01 | PDOC4 ---
PROCEDURE Procedure Addendum for trigger point injections: Report injection performed at the cervical, trapezius, thoracic paraspinous, lumbar paraspinous musculature MARY ASENCIO MD Oct 31, 2019 14:01
== END | disposition home or self-care (01) ==
LOC: PNCL 09:13
PROVIDERS: ATTEND Anesthesiology
DX: M51.16 Intervertebral disc disorders with radiculopathy, lumbar region (principal); M50.30 Other cervical disc degeneration, unspecified cervical region; M79.18 Myalgia, other site; M17.12 Unilateral primary osteoarthritis, left knee; Z88.8 Allergy status to other drugs, medicaments and biological substances; Z79.899 Other long term (current) drug therapy
CPT/HCPCS: 20553; J1030; J3490

== ENCOUNTER → 2020-06-22 | Outpatient (CLI) | payer MEDICARE, OTHER ==
[~2020-06-22] MED LIST changes: -BUPIVACAINE MPF 0.25% 10 ML VIAL. ONE; +BUPIVACAINE MPF 0.25% 30 ML VIAL. ONE; -FLUT100D IH; +FLUT100D2 IH
--- NOTE | 2020-06-22 08:34 | PDOC ---
Progress Note - Pain Clinic Date of Service: DOS: DATE: 06/22/20 TIME: 08:28 Diagnosis: Dx: Lumbar degenerative disc disease lumbar and lumbosacral spondylosis Cervical radiculopathy with cervical degenerative disease Myofascial pain Left knee joint pain with osteoarthritis History or Present Illness: HPI: 74-year-old female returns for follow-up last seen October 29, 2019 patient had trigger point injections at that time with very good results patient reports to be doing fairly well still has pain in her left knee with walking and standing and requesting orthopedic evaluation for that which we will arrange. Patient reports otherwise had been doing very well until the last few weeks when she fell at a local restaurant ramp landing on her right side also has had some increased pain in the low back bilaterally at the same time. Patient reports he had recently had some x-rays of her ribs which showed no fractures. Patient reports the pain is increasing with walking standing changing positions getting up from a seated position and with walking. Patient reports she feels unstable because the pain in the low back and the right hip. Patient cries pain is sharp and tight constant and severe in the back and some more sharp pain in the right shoulder after a fall. Patient rates her pain as a 7 on scale 10 is worst 7 on average and 5 its least is a 7 today. Patient reports no new motor or sensory deficits no new bowel or bladder incontinence. Physical Exam: VS: Blood pressure is 131/73 pulse 63 respirations 18 temperature is 97.8 F height is 5 feet 4 inches weight is 266 pounds PE: PHYSICAL EXAMINATION: GENERAL: The patient is awake, alert, oriented, appropriate, very pleasant demeanor HEENT: Shows normocephalic, atraumatic. Extraocular movements are intact and symmetrical. Oral cavity: Mucous membranes moist and pink. Dentition is intact. NECK: Shows anterior throat supple without palpable lymphadenopathy noted. Swallow reflex symmetrical. CHEST: Shows normal on inspection. Breath sounds are clear bilaterally, no rales or rhonchi auscultated. HEART: Shows S1, S2 clear. No murmurs auscultated. ABDOMEN: Soft, nontender, nondistended, obese. No palpable organomegaly is noted. No rebound or guarding demonstrated. BACK: Shows spine grossly in the midline. Normal-appearing cervical lordotic curvature. Cervical paraspinous muscles show symmetrical on inspection with palpation some very firm ropelike musculature in the middle and inferior aspect of the cervical paraspinous muscles as well as into the superior medial trapezius and lateral trapezius off the suprascapular region with very firm ropelike musculature again consistent with trigger point areas but without radiation. This is true into the medial aspect of the upper thoracic paraspinous muscles are very firm ropelike musculature consistent with trigger point areas on the right only. There is slightly increased thoracic kyphosis, some minor flattening of the lumbar lordotic curvature. Lumbar paraspinous muscles show symmetrical on inspection, on palpation shows some moderate tenderness diffusely throughout the upper, middle and lower distribution of the paraspinous muscles lumbar paraspinous muscle shows multiple areas of very firm ropelike musculature throughout the upper middle lower distribution very firm and tender consistent with trigger point areas of musculature but without radiation. Also right gluteus shows significant tenderness very firm ropelike musculature in the superior medial aspect of the right gluteus, without radiation of pain. No tenderness over the spinous processes, sacrum or sacroiliac regions. EXTREMITIES: Lower extremities show deep tendon reflexes 1+ in the patellar and tendo calcaneus tendons. Motor exam is 4 on a scale of 5 with right dorsi flexion, extension, quadriceps and hamstring flexion and 4/5 on the left. Peripheral pulses are 1 posterior tibial. No peripheral edema is noted bilaterally. Lower extremities are warm and dry to touch, equal in color and appearance. SKIN: Shows warm and dry, good turgor. No edema. No sores, rashes or bruising throughout. Procedure: Procedure: Options were discussed with the patient. Patient chart reviews her current medication regimen updated current review of systems updated today as well. We will proceed with trigger point injections of the identified musculature risk were discussed including but not limited to bleeding infection possibility of antibiotic injection and sequelae spread to local anesthetic numbness side effects of steroid medication pneumothorax and portals rating pain control. Patient understands wished to proceed. Patient return to clinic in approximate 4 weeks for follow-up, was counseled as to return appointment activity level side effects to be aware of. Medication Injected: Med Injected: Under sterile prep and drape patient sitting position trigger points identified in the cervical paraspinous musculature right trapezius musculature right thoracic paraspinous posture bilateral lumbar paraspinous posterior and right gluteus musculature. Each trigger point was injected using a 25-gauge needle with a total of 1 cc each after negative aspiration. Total 14 cc 0.25% bupivacaine and total of 40 mg Depo-Medrol injected. Patient tolerated the procedure well and had no complications. Condition at Discharge: Condition at Discharge: Condition at discharge stable, patient tolerated procedure well and had no complications. MARY ASENCIO MD Jun 22, 2020 08:34
--- NOTE | 2020-06-22 08:34 | PDOC4 ---
PROCEDURE Procedure Patient was consented for trigger point injections. Risk were discussed inc luding but not limited to bleeding infection possibility of intravascular injection sequelae spread local anesthetic numbness pneumothorax side effects of steroid medication and poor results regarding pain control. Patient understands wished to proceed. Under sterile prep and drape patient sitting position trigger points identified in the cervical paraspinous musculature right trapezius musculature right thoracic paraspinous posture bilateral lumbar paraspinous posterior and right gluteus musculature. Each trigger point was injected using a 25-gauge needle with a total of 1 cc each after negative aspiration. Total 14 cc 0.25% bup ivacaine and total of 40 mg Depo-Medrol injected. Patient tolerated the procedure well and had no complications. MARY ASENCIO MD Jun 22, 2020 08:34
== END | disposition home or self-care (01) ==
LOC: PNCL 07:47
PROVIDERS: ATTEND Anesthesiology
DX: M51.36 Other intervertebral disc degeneration, lumbar region (principal); M50.10 Cervical disc disorder with radiculopathy, unspecified cervical region; M47.817 Spondylosis without myelopathy or radiculopathy, lumbosacral region; M79.18 Myalgia, other site; M17.12 Unilateral primary osteoarthritis, left knee; Z79.899 Other long term (current) drug therapy; Z88.1 Allergy status to other antibiotic agents; Z88.8 Allergy status to other drugs, medicaments and biological substances
CPT/HCPCS: 20553; J1030; J3490

== ENCOUNTER → 2020-07-20 | Outpatient (CLI) | payer MEDICARE, OTHER ==
[~2020-07-20] MED LIST changes: +BUPIVACAINE MPF 0.25% 10 ML VIAL. ONE; -BUPIVACAINE MPF 0.25% 30 ML VIAL. ONE; +IOHEXOL 180 MG/ML 10 ML VIAL. ONE; +methylPREDNISolone ACETATE 80 MG/ML VIAL. ONE
--- NOTE | 2020-07-20 12:03 | PDOC ---
Progress Note - Pain Clinic Date of Service: DOS: DATE: 07/20/20 TIME: 12:00 Diagnosis: Dx: Lumbar degenerative disc disease with lumbar and lumbosacral spondylosis Cervical radiculopathy with cervical degenerative disc disease Myofascial pain Left knee joint pain with osteoarthritis History or Present Illness: HPI: 74-year-old female returns for follow-up status post trigger point injections most recently June 22, 2020 with about 90% improvement initially but the pain is returning now we discussed the possibility of lumbar facet injections after her last visit and patient is having significant pain with bending stooping especially with prolonged standing in the low back itself without radiation to the lower extremities. Patient reports is getting worse so since her last visit while the muscles are feeling somewhat better and her chiropractor is helping with these as well the pain in the back itself is coming more noticeable especially with standing and sitting for prolonged periods patient rates it as a 7 on scale 10 is worse over the past week 6 on average 6 its least is a 6 today patient reports is aching waking her from sleep at stabbing severe when walking and standing patient reports no loss of motor function no bowel or bladder incontinence. Physical Exam: VS: Blood pressure is 116/51 pulse 68 respirations 16 temperature 98.3 F weight is 264 pounds PE: PHYSICAL EXAMINATION: GENERAL: The patient is awake, alert, oriented, appropriate, very pleasant demeanor HEENT: Shows normocephalic, atraumatic. Extraocular movements are intact and symmetrical. Oral cavity: Mucous membranes moist and pink. Dentition is intact. NECK: Shows anterior throat supple without palpable lymphadenopathy noted. Swallow reflex symmetrical. CHEST: Shows normal on inspection. Breath sounds are clear bilaterally, distant but no rales or rhonchi. HEART: Shows S1, S2 clear. No murmurs auscultated. ABDOMEN: Soft, nontender, nondistended, obese. No palpable organomegaly is noted. No rebound or guarding demonstrated. BACK: Shows spine grossly in the midline. Normal-appearing cervical lordotic curvature. There is slightly increased thoracic kyphosis, some minor flattening of the lumbar lordotic curvature. Lumbar paraspinous muscles show symmetrical on inspection, on palpation shows some moderate tenderness diffusely throughout the upper, middle and lower distribution of the paraspinous muscles, but without specific trigger points, without radiation of pain. The patient has good rotational motion of the lumbar spine, with significant pain noted with extension and axial loading of the lumbar spine better with forward flexion but still painful right and left lateral rotation greater than 10 degrees shows moderate tenderness bilaterally as well. Radiation is demonstrated. EXTREMITIES: Lower extremities show deep tendon reflexes 1+ in the patellar and tendo calcaneus tendons. Motor exam is 4 on a scale of 5 with right dorsiflexion, extension, quadriceps and hamstring flexion and 4/5 on the left. Peripheral pulses are 1+ posterior tibial. No peripheral edema is noted bilaterally. Lower extremities are warm and dry to touch, equal in color and appearance. SKIN: Shows warm and dry, good turgor. No edema. No sores, rashes or bruising throughout. Procedure: Procedure: Options were discussed with the patient. Patient chart was reviewed as her current medication regimen updated current review of systems updated today as well. We will proceed with bilateral L4-5 and L5-S1 facet injections today with fluoroscopic guidance. Risks were discussed including but not limited to: Bleeding, infection, possibility of epidural hematoma and subsequent neurological compromise, dural puncture, headaches, spinal cord and/or nerve damage, side effects of steroid medication, and poor results regarding pain control. Patient understands and wished to proceed. Patient return to clinic in approximate 2 weeks for follow-up, was counseled as to return appointment activity level and side effects to be aware of. Medication Injected: Med Injected: Under sterile prep and drape using C-arm fluoroscopic guidance AP and lateral and oblique views, bilateral L4-5 and L5-S1 facet joint injections were performed, medications injected: 120 mg Depo-Medrol +4 cc 0.25% bupivacaine +2 cc contrast. Condition at discharge stable patient tolerated the procedure well and no complications. Condition at Discharge: Condition at Discharge: Condition at discharge stable, patient already procedure well and had no complications. MARY ASENCIO MD July 20, 2020 12:03
--- NOTE | 2020-07-20 12:04 | PDOC4 ---
PROCEDURE Procedure Patient was consented for bilateral L4-5 and L5-S1 facet joint medial branch blocks. Risks were discussed including but not limited to: Bleeding, infection, possibility of epidural hematoma and subsequent neurological compromise, dural puncture, headaches, spinal cord and/or nerve damage, side effects of steroid medication, and poor results regarding pain control. Patient understands and wished to proceed. Under sterile prep and drape using C-arm fluoroscopic guidance AP and lateral and oblique views, bilateral L4-5 and L5-S1 facet joint injections were performed, medications injected: 120 mg Depo-Medrol +4 cc 0.25% bupivacaine +2 cc contrast. Condition at discharge stable patient tolerated the procedure well and no complications. MARY ASENCIO MD July 20, 2020 12:04
== END | disposition home or self-care (01) ==
LOC: PNCL 10:36
PROVIDERS: ATTEND Anesthesiology
DX: M51.36 Other intervertebral disc degeneration, lumbar region (principal); M47.817 Spondylosis without myelopathy or radiculopathy, lumbosacral region; M50.10 Cervical disc disorder with radiculopathy, unspecified cervical region; M79.18 Myalgia, other site; M17.12 Unilateral primary osteoarthritis, left knee; Z79.899 Other long term (current) drug therapy; Z88.1 Allergy status to other antibiotic agents; Z88.6 Allergy status to analgesic agent; Z88.8 Allergy status to other drugs, medicaments and biological substances
CPT/HCPCS: 64493; 64494; J1030; J1040; J3490; Q9965

== ENCOUNTER → 2020-10-08 | Outpatient (CLI) | payer MEDICARE, OTHER ==
[~2020-10-08] MED LIST changes: -BUPIVACAINE MPF 0.25% 10 ML VIAL. ONE; -IOHEXOL 180 MG/ML 10 ML VIAL. ONE; -methylPREDNISolone ACETATE 40 MG/ML VIAL. ONE; -methylPREDNISolone ACETATE 80 MG/ML VIAL. ONE
--- NOTE | 2020-10-08 17:12 | KCIC ---
MRI STUDY OF THE LEFT FOREFOOT WITHOUT CONTRAST Clinical indications: Lateral left forefoot pain along the fifth metatarsal region. No known injury. TECHNIQUE: Noncontrast MRI sequences of the left forefoot were performed in all 3 planes. COMPARISON: Left foot x-ray study dated July 14, 2020. FINDINGS: No marrow infiltrative process or fracture or periosteal reaction or dislocation is seen. T here is degenerative cystic change and degenerative osteoarthritis involving the second and third tar balwinder metatarsal joints and the talus-second cuneiform joint. There is degenerative spurring without cy st formation involving the fourth tarsal metatarsal joint. There is mild stress reaction subchondral bone marrow edema present here. There is mild degenerative spurring and osteoarthritis of the first m etatarsal phalangeal joint. No abnormal joint effusion is seen here. There is dorsal subcutaneous sof t tissue edema more prominent laterally. No soft tissue mass is evident. The flexor and extensor tend ons are intact. No tenosynovitis is seen. IMPRESSION: No fracture or marrow infiltrative process or periosteal reaction is evident. Primary degenerative osteoarthritis of the intertarsal joints and tarsal metatarsal joints and first metatarsal phalangeal joint. Dorsal subcutaneous soft tissue edema. This may be seen with cellulitis. Electronically signed by: Alex Gracia MD (10/08/2020 5:09 PM) [id number]
== END ==
LOC: KCIC MRI 14:36
PROVIDERS: ATTEND Orthopaedic Surgery Foot and Ankle Surgery
DX: M19.072 Primary osteoarthritis, left ankle and foot (principal); M79.89 Other specified soft tissue disorders; M25.872 Other specified joint disorders, left ankle and foot
CPT/HCPCS: 73718